=== PATIENT | female | born 1990 | race American Indian/Alaskan Native ===

== ENCOUNTER 2018-03-13 08:48 | Emergency (ER) | payer BC ==
[2018-03-13] MEDS ORDERED: NACL 0.9% 1000 ML 1,000 ML IV ONE ×2 (10:58→12:14)
[2018-03-13] MEDS ORDERED: ZOFRAN ODT PO ONE (11:18)
[2018-03-13] MEDS ORDERED: BENTYL IM ONE (11:18)
[2018-03-13] MEDS ORDERED: PEPCID IV ONE (12:14)
--- NOTE | 2018-03-13 12:19 | Emergency Department Report ---
Blank Doc - Documentation Documentation: Patient is a 27-year-old black female who is presenting with nausea vomiting and diarrhea for the past 12 hours. Patient has some mild epigastric discomfort. Patient states she gets very crampy in the epigastrium that she vomits and it gets better but then returns. Attempted to give the patient Zofran and Bentyl to help with symptoms but they did not improve. Patient removed her treatment room for IV fluids we'll check labs and ultrasound to rule out cholecystitis.
--- NOTE | 2018-03-13 12:28 | Emergency Department Report ---
ED Abdominal Pain HPI - General Chief Complaint: Chest Pain Stated Complaint: SOB/CHEST PAIN/VOMITING Time Seen by Provider: 03/13/18 11:15 Source: patient, family Mode of arrival: Ambulatory Limitations: No Limitations - History of Present Illness Initial Comments: Patient is a 27-year-old black female who is presenting with nausea vomiting and diarrhea for the past 12 hours. Patient has some mild epigastric discomfort. Patient states she gets very crampy in the epigastrium that she vomits and it gets better but then returns. Pain is 8/10 epigastric area. No medication taken for pain. Pain is constant. Exacerbated by vomiting and no alleviating factor. MD Complaint: abdominal pain, other (nausea vomiting and diarrhea) -: Last night Location: epigastric Radiation: none Migration to: no migration Severity: severe Severity scale (0 -10): 8 Quality: cramping Consistency: constant Improves With: nothing Worsens With: vomiting Context: other (unknown) Associated Symptoms: nausea, vomiting, diarrhea. denies: fever, constipation, dysuria, hematemesis, hematochezia, melena, hematuria, syncope Treatments Prior to Arrival: other (none) - Related Data LMP Date: 03/07/18 Previous Rx's Medication Instructions Recorded Last Taken Type Dicyclomine [Bentyl] 20 mg PO Q8H 3 Days #9 tablet 03/13/18 Unknown Rx HYDROcodone/ACETAMINOPHEN [[place] 1 each PO Q6H PRN #12 tablet 03/13/18 Unknown Rx 5-325 Tablet] Promethazine [Phenergan TAB] 25 mg PO Q6HR PRN #16 tab 03/13/18 Unknown Rx cephALEXin [Keflex] 500 mg PO Q8HR 7 Days #21 cap 03/13/18 Unknown Rx Allergies Allergy/AdvReac Type Severity Reaction Status Date / Time No Known Allergies Allergy Verified 03/13/18 11:27 ED Review of Systems ROS: Stated complaint: SOB/CHEST PAIN/VOMITING Other details as noted in HPI Constitutional: denies: chills, fever Eyes: denies: eye discharge ENT: denies: ear pain, throat pain, congestion Respiratory: denies: cough, shortness of breath, SOB with exertion, SOB at rest , stridor, wheezing Cardiovascular: denies: chest pain, palpitations, edema, syncope Gastrointestinal: abdominal pain, nausea, vomiting, diarrhea. denies: constipation, hematemesis, melena, hematochezia Genitourinary: denies: urgency, dysuria, frequency, hematuria, discharge, abnormal menses, dyspareunia Musculoskeletal: denies: back pain, joint swelling, arthralgia Skin: denies: rash, lesions Neurological: denies: headache, weakness, vertigo ED Past Medical Hx - Past Medical History Previous Medical History?: No - Surgical History Past Surgical History?: No - Family History Family history: hypertension - Social History Smoking Status: Never Smoker Substance Use Type: None - Medications Home Medications: Home Medications Medication Instructions Recorded Confirmed Last Taken Type Dicyclomine [Bentyl] 20 mg PO Q8H 3 Days #9 tablet 03/13/18 Unknown Rx HYDROcodone/ACETAMINOPHEN [[place] 1 each PO Q6H PRN #12 tablet 03/13/18 Unknown Rx 5-325 Tablet] Promethazine [Phenergan TAB] 25 mg PO Q6HR PRN #16 tab 03/13/18 Unknown Rx cephALEXin [Keflex] 500 mg PO Q8HR 7 Days #21 cap 03/13/18 Unknown Rx ED Physical Exam - General Limitations: No Limitations General appearance: alert, other (patient moan and groanS) - Head Head exam: Present: atraumatic, normocephalic, normal inspection - Eye Eye exam: Present: normal appearance, PERRL, EOMI Pupils: Present: normal accommodation - ENT ENT exam: Present: normal exam, normal orophraynx, mucous membranes moist - Neck Neck exam: Present: normal inspection - Respiratory Respiratory exam: Present: normal lung sounds bilaterally. Absent: respiratory distress, chest wall tenderness - Cardiovascular Cardiovascular Exam: Present: regular rate, normal rhythm, normal heart sounds - GI/Abdominal GI/Abdominal exam: Present: soft, normal bowel sounds. Absent: distended, tenderness, guarding, rebound, rigid, organomegaly, mass, bruit, pulsatile mass , hernia - Extremities Exam Extremities exam: Present: normal inspection - Back Exam Back exam: Present: normal inspection, full ROM, other (ambulates without any difficulties). Absent: tenderness, CVA tenderness (R), CVA tenderness (L), rash noted - Neurological Exam Neurological exam: Present: alert, oriented X3, normal gait - Psychiatric Psychiatric exam: Present: anxious - Skin Skin exam: Present: warm, dry, intact, normal color. Absent: rash ED Course Vital Signs 03/13/18 03/13/18 03/13/18 08:50 11:45 12:47 Temperature 97.9 F 98.5 F Pulse Rate 95 H 89 Respiratory 20 15 Rate Blood Pressure 123/85 Blood Pressure 124/97 [Right] O2 Sat by Pulse 100 100 Oximetry 03/13/18 03/13/18 13:32 13:42 Temperature 98.5 F Pulse Rate 88 Respiratory 18 16 Rate Blood Pressure 103/63 Blood Pressure [Right] O2 Sat by Pulse 96 Oximetry - Reevaluation(s) Reevaluation #1: 03/13/18 12:46 Patient was given Zofran 8 mg by mouth which did not help. She was also given Bentyl 20 mg IM and her abdominal pain is still there with tenderness to palpate. Reevaluation #2: 03/13/18 13:48 Patient started on normal saline IV fluid, she was given Reglan 10 mg IV, hydrocodone 0.5 mg IV, lidocaine 15 mL by mouth and antacid Maalox 30 meals by mouth which relieved her nausea vomiting. No episode of diarrhea in the emergency room and she says she is feeling a lot better. Abdomen nontender to palpate. ED Medical Decision Making - Lab Data Result diagrams: 03/13/18 12:35 03/13/18 12:35 Lab Results 03/13/18 03/13/18 03/13/18 Range/Units 11:38 12:35 12:35 WBC 21.8 H (4.5-11.0) K/mm3 RBC 5.46 H (3.65-5.03) M/mm3 Hgb 15.0 H (10.1-14.3) gm/dl Hct 45.9 H (30.3-42.9) % MCV 84 (79-97) fl MCH 27 L (28-32) pg MCHC 33 (30-34) % RDW 13.4 (13.2-15.2) % Plt Count 346 (140-440) K/mm3 Add Manual Diff Complete Total Counted 100 Seg Neutrophils % Environmental Health Manager Seg Neuts % (Manual) 93.0 H (40.0-70.0) % Band Neutrophils % 3.0 % Lymphocytes % (Manual) 3.0 L (13.4-35.0) % Reactive Lymphs % (Man) 0 % Monocytes % (Manual) 1.0 (0.0-7.3) % Eosinophils % (Manual) 0 (0.0-4.3) % Basophils % (Manual) 0 (0.0-1.8) % Metamyelocytes % 0 % Myelocytes % 0 % Promyelocytes % 0 % Blast Cells % 0 % Nucleated RBC % Not Reportable Seg Neutrophils # Man 20.3 H (1.8-7.7) K/mm3 Band Neutrophils # 0.7 K/mm3 Lymphocytes # (Manual) 0.7 L (1.2-5.4) K/mm3 Abs React Lymphs (Man) 0.0 K/mm3 Monocytes # (Manual) 0.2 (0.0-0.8) K/mm3 Eosinophils # (Manual) 0.0 (0.0-0.4) K/mm3 Basophils # (Manual) 0.0 (0.0-0.1) K/mm3 Metamyelocytes # 0.0 K/mm3 Myelocytes # 0.0 K/mm3 Promyelocytes # 0.0 K/mm3 Blast Cells # 0.0 K/mm3 WBC Morphology Not Reportable Hypersegmented Neuts Not Reportable Hyposegmented Neuts Not Reportable Hypogranular Neuts Not Reportable Smudge Cells Not Reportable Toxic Granulation Not Reportable Toxic Vacuolation Not Reportable Dohle Bodies Not Reportable Pelger-Huet Anomaly Not Reportable Karina Rods Not Reportable Platelet Estimate Appears normal Clumped Platelets Not Reportable Plt Clumps, EDTA Not Reportable Large Platelets Not Reportable Giant Platelets Not Reportable Platelet Satelliting Not Reportable Plt Morphology Comment Not Reportable RBC Morphology Normal Dimorphic RBCs Not Reportable Polychromasia Not Reportable Hypochromasia Not Reportable Poikilocytosis Not Reportable Anisocytosis Not Reportable Microcytosis Not Reportable Macrocytosis Not Reportable Spherocytes Not Reportable Pappenheimer Bodies Not Reportable Sickle Cells Not Reportable Target Cells Not Reportable Tear Drop Cells Not Reportable Ovalocytes Not Reportable Helmet Cells Not Reportable Sinha-[place] Bodies Not Reportable [place] Rings Not Reportable Kiya Cells Not Reportable Bite Cells Not Reportable Crenated Cell Not Reportable Elliptocytes Not Reportable Acanthocytes (Spur) Not Reportable Rouleaux Not Reportable Hemoglobin C Crystals Not Reportable Schistocytes Not Reportable Malaria parasites Not Reportable Kit Bodies Not Reportable Hem Pathologist Commnt No Sodium 139 (137-145) mmol/L Potassium 4.0 (3.6-5.0) mmol/L Chloride 98.4 (98-107) mmol/L Carbon Dioxide 22 (22-30) mmol/L Anion Gap 23 mmol/L BUN 12 (7-17) mg/dL Creatinine 0.7 (0.7-1.2) mg/dL Estimated GFR > 60 ml/min BUN/Creatinine Ratio 17 % Glucose 112 H (65-100) mg/dL POC Glucose 109 H (70-105) Calcium 9.9 (8.4-10.2) mg/dL Total Bilirubin 1.30 H (0.1-1.2) mg/dL AST 23 (5-40) units/L ALT 14 (7-56) units/L Alkaline Phosphatase 87 (35-129) units/L Total Protein 8.8 H (6.3-8.2) g/dL Albumin 5.1 H (3.9-5) g/dL Albumin/Globulin Ratio 1.4 % Lipase 23 (13-60) units/L HCG, Qual (Negative) Urine Color (Yellow) Urine Turbidity (Clear) Urine pH (5.0-7.0) Ur Specific [place] (1.003-1.030) Urine Protein (Negative) mg/dL Urine Glucose (UA) (Negative) mg/dL Urine Ketones (Negative) mg/dL Urine Blood (Negative) Urine Nitrite (Negative) Urine Bilirubin (Negative) Urine Urobilinogen (<2.0) mg/dL Ur Leukocyte Esterase (Negative) Urine WBC (Auto) (0.0-6.0) /HPF Urine RBC (Auto) (0.0-6.0) /HPF U Epithel Cells (Auto) (0-13.0) /HPF Urine Mucus /HPF 03/13/18 03/13/18 Range/Units 12:35 Unknown WBC (4.5-11.0) K/mm3 RBC (3.65-5.03) M/mm3 Hgb (10.1-14.3) gm/dl Hct (30.3-42.9) % MCV (79-97) fl MCH (28-32) pg MCHC (30-34) % RDW (13.2-15.2) % Plt Count (140-440) K/mm3 Add Manual Diff Total Counted Seg Neutrophils % Seg Neuts % (Manual) (40.0-70.0) % Band Neutrophils % % Lymphocytes % (Manual) (13.4-35.0) % Reactive Lymphs % (Man) % Monocytes % (Manual) (0.0-7.3) % Eosinophils % (Manual) (0.0-4.3) % Basophils % (Manual) (0.0-1.8) % Metamyelocytes % % Myelocytes % % Promyelocytes % % Blast Cells % % Nucleated RBC % Seg Neutrophils # Man (1.8-7.7) K/mm3 Band Neutrophils # K/mm3 Lymphocytes # (Manual) (1.2-5.4) K/mm3 Abs React Lymphs (Man) K/mm3 Monocytes # (Manual) (0.0-0.8) K/mm3 Eosinophils # (Manual) (0.0-0.4) K/mm3 Basophils # (Manual) (0.0-0.1) K/mm3 Metamyelocytes # K/mm3 Myelocytes # K/mm3 Promyelocytes # K/mm3 Blast Cells # K/mm3 WBC Morphology Hypersegmented Neuts Hyposegmented Neuts Hypogranular Neuts Smudge Cells Toxic Granulation Toxic Vacuolation Dohle Bodies Pelger-Huet Anomaly Karina Rods Platelet Estimate Clumped Platelets Plt Clumps, EDTA Large Platelets Giant Platelets Platelet Satelliting Plt Morphology Comment RBC Morphology Dimorphic RBCs Polychromasia Hypochromasia Poikilocytosis Anisocytosis Microcytosis Macrocytosis Spherocytes Pappenheimer Bodies Sickle Cells Target Cells Tear Drop Cells Ovalocytes Helmet Cells Sinha-[place] Bodies [place] Rings Kiya Cells Bite Cells Crenated Cell Elliptocytes Acanthocytes (Spur) Rouleaux Hemoglobin C Crystals Schistocytes Malaria parasites Kit Bodies Hem Pathologist Commnt Sodium (137-145) mmol/L Potassium (3.6-5.0) mmol/L Chloride (98-107) mmol/L Carbon Dioxide (22-30) mmol/L Anion Gap mmol/L BUN (7-17) mg/dL Creatinine (0.7-1.2) mg/dL Estimated GFR ml/min BUN/Creatinine Ratio % Glucose (65-100) mg/dL POC Glucose (70-105) Calcium (8.4-10.2) mg/dL Total Bilirubin (0.1-1.2) mg/dL AST (5-40) units/L ALT (7-56) units/L Alkaline Phosphatase (35-129) units/L Total Protein (6.3-8.2) g/dL Albumin (3.9-5) g/dL Albumin/Globulin Ratio % Lipase (13-60) units/L HCG, Qual Negative (Negative) Urine Color Yellow (Yellow) Urine Turbidity Slightly-cloudy (Clear) Urine pH 7.0 (5.0-7.0) Ur Specific [place] 1.027 (1.003-1.030) Urine Protein <15 mg/dl (Negative) mg/dL Urine Glucose (UA) Neg (Negative) mg/dL Urine Ketones 20 (Negative) mg/dL Urine Blood Neg (Negative) Urine Nitrite Neg (Negative) Urine Bilirubin Neg (Negative) Urine Urobilinogen < 2.0 (<2.0) mg/dL Ur Leukocyte Esterase Tr (Negative) Urine WBC (Auto) 1.0 (0.0-6.0) /HPF Urine RBC (Auto) 3.0 (0.0-6.0) /HPF U Epithel Cells (Auto) 4.0 (0-13.0) /HPF Urine Mucus Few /HPF - EKG Data -: EKG Interpreted by Me (attending physician) EKG shows normal: sinus rhythm Rate: normal (70 bpm) - EKG Data Interpretation: no acute changes, normal EKG - Radiology Data Radiology results: report reviewed ABDOMINAL COMPLETE DICTATED BY RADIOLOGIST'S REPORT. PLEASE SEE DETAILS BELOW. Patient: SUSHMA VAN MR#: [id number] : 1990 Acct:[id number] Age/Sex: 27 / F ADM Date: 03/13/18 Loc: ED Attending Dr: Ordering Physician: MORALES OSUNA MD Date of Service: 03/13/18 Procedure(s): US abdomen complete Accession Number(s): [id number] cc: MORALES OSUNA MD ULTRASOUND ABDOMEN COMPLETE: TECHNIQUE: Transabdominal ultrasound with color Doppler interrogation. HISTORY: Nausea, vomiting, and diarrhea. Epigastric pain. COMPARISON: none. FINDINGS: LIVER: Normal. BILIARY SYSTEM: Normal. PANCREAS: Normal. SPLEEN: Normal. KIDNEYS: Normal. AORTA/IVC: Normal. ASCITES: None. IMPRESSION: Unremarkable exam. Transcribed By: TTR Dictated By: RAFAEL WELLER JR, MD Electronically Authenticated By: RAFAEL WELLER JR, MD Signed Date/Time: 03/13/181342 DD/ 42 TD/TT: 03/13/181342 - Medical Decision Making This is a 27-year-old female here reports that she is having in nausea vomiting diarrhea with epigastric pain to started last night. She is here to be evaluated. Ultrasound complete abdomen: Unremarkable exam. Please refer to report section for details Labs: Reglan status negative, urinalysis positive for small UTI with mild dehydration. CBC with elevation in white count of 21 and this was discussed with Dr. Osuna in feels like this is from her continuous nausea and vomiting. Other values and CBC, mild bacterial shift to the left, CMP stable. Lipase is stable. Assessment/plan 1: Abdominal pain-resolved 2: Nausea vomiting and diarrhea-resolved. Patient given 1 L normal saline emergency room. She had no nausea vomiting and diarrhea. She is able to tolerate ice water without any nausea or vomiting. 3: Acute cystitis without hematuria-Will place on Keflex 4: Leukocytosis: Suspect from patient's continuous vomiting. 5: Mild dehydration-patient able to tolerate oral liquids and was given normal saline 1 L. Patient educated on diagnosis, laboratory results, ultrasound results. I discussed with her that she will need to follow up with gastroenterology and also primary care. She asked if I can refer her to her primary care doctor which I will do. I discussed with her that she needs to eat bland diet over the next 72 hours and she voiced understanding. Vital signs are stable, afebrile, symptoms have been relieved and patient is nontoxic in appearance. She says she is feeling a lot better. Discharged home in stable condition with referral to [facility] and [place] [facility] to see in 2 days. Given prescription for Bentyl, Phenergan, Keflex and [place] - Differential Diagnosis gbd, pancreatitis, liver disease, enteritis UTI, Critical care attestation.: If time is entered above; I have spent that time in minutes in the direct care of this critically ill patient, excluding procedure time. ED Disposition Clinical Impression: Nausea vomiting and diarrhea, Mild dehydration Abdominal pain Qualifiers: Abdominal location: epigastric Qualified Code(s): R10.13 - Epigastric pain Acute cystitis Qualifiers: Hematuria presence: without hematuria Qualified Code(s): N30.00 - Acute cystitis without hematuria Disposition: TO HOME OR SELFCARE Is pt being admited?: No Does the pt Need Aspirin: No Condition: Stable Instructions: Acute Nausea and Vomiting (ED), Acute Diarrhea (ED), Leukocytosis (ED), Abdominal Pain (ED), Nutrition Tips for Relief of Diarrhea ( ED) Additional Instructions: Please see referral to primary care and transmission inspector for follow-up visit in 2 days. Please utilize diet to include bananas, rice, applesauce and toast over the next 72 hours. 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 Prescriptions: cephALEXin [Keflex] 500 mg PO Q8HR 7 Days #21 cap Dicyclomine [Bentyl] 20 mg PO Q8H 3 Days #9 tablet HYDROcodone/ACETAMINOPHEN [[place] 5-325 Tablet] 1 each PO Q6H PRN #12 tablet PRN Reason: moderate to severe pain Promethazine [Phenergan TAB] 25 mg PO Q6HR PRN #16 tab PRN Reason: Nausea Referrals: [facility] [Provider Group] - 03/15/18 MARTINA ROQUE MD [Staff Physician] - 03/15/18 [facility] [Outside] - 03/15/18 Forms: Accompanied Note, Work/School Release Form(ED)
[2018-03-13 12:44] LABS: Hematocrit 45.9 % (30.3-42.9); Mean Corpuscular HGB Conc 33 % (30-34); Mean Corpuscular Hemoglobin 27 pg (28-32); Mean Corpuscular Volume 84 fl (79-97); Platelet Count 346 K/mm3 (140-440); Red Blood Count 5.46 M/mm3 (3.65-5.03); Red Cell Distribution Width 13.4 % (13.2-15.2)
[2018-03-13] MEDS ORDERED: LIDOCAINE VISCOUS 2% PO ONE (12:49)
[2018-03-13] MEDS ORDERED: ALUM-MAG HYDROX-SIMETH 200-200-20MG/5ML PO ONE (12:49)
[2018-03-13 13:09] LABS: Alanine Aminotransferase 14 units/L (7-56); Albumin 5.1 g/dL (3.9-5); BUN/Creatinine Ratio 17; Blood Urea Nitrogen 12 mg/dL (7-17); Calcium 9.9 mg/dL (8.4-10.2); Hemolysis Index 15; Lipase 23 units/L (13-60)
[2018-03-13] MEDS ORDERED: REGLAN IV ONE (13:25)
[2018-03-13] MEDS ORDERED: DILAUDID IV ONE (13:25)
[2018-03-13] MEDS ORDERED: REGLAN ONE (13:29)
[2018-03-13] MEDS ORDERED: DILAUDID ONE (13:29)
[2018-03-13 13:37] LABS: Total Cells Counted 100
[2018-03-13 13:38] LABS: Band Neutrophils # (Manual) 0.7 K/mm3; Basophils % (Manual) 0 % (0.0-1.8); Eosinophils % (Manual) 0 % (0.0-4.3); RBC Morphology Normal
[2018-03-13 13:44] VITALS: BP 103/63
--- NOTE | 2018-03-13 13:44 | Ultrasound Report ---
ULTRASOUND ABDOMEN COMPLETE: TECHNIQUE: Transabdominal ultrasound with color Doppler interrogation. HISTORY: Nausea, vomiting, and diarrhea. Epigastric pain. COMPARISON: none. FINDINGS: LIVER: Normal. BILIARY SYSTEM: Normal. PANCREAS: Normal. SPLEEN: Normal. KIDNEYS: Normal. AORTA/IVC: Normal. ASCITES: None. IMPRESSION: Unremarkable exam.
[2018-03-13 14:37] LABS: Bilirubin,Urine NEG (Negative); Blood,Urine NEG (Negative); Color,Urine Yellow (Yellow); Mucus,Urine FEW /HPF; Protein,Urine <15 mg/dL mg/dL (Negative); Urobilinogen,Urine < 2.0 mg/dL (<2.0)
== END 2018-03-13 15:43 | disposition home or self-care (01) ==
LOC: ED 08:48
DX: E86.0 Dehydration (principal); N30.00 Acute cystitis without hematuria; R10.13 Epigastric pain; R11.2 Nausea with vomiting, unspecified; R19.7 Diarrhea, unspecified
CPT/HCPCS: 36415; 76700; 80053; 81001; 82962; 83690; 84703; 85007; 85025; 93005; 93010; 96361; 96372; 96374; 96375; 99284; J0500; J1170; J2765; J7030; Q0162